=== PATIENT | female | born 1955 ===

== ENCOUNTER 2021-01-24 07:06 | Day surgery (SDC) | payer OTHER ==
[2021-01-24] MEDS ORDERED: NAPR500T14 PO (14:27)
[2021-01-24] MEDS ORDERED: MORGIDOX100 MG PO (14:27)
== END 2021-01-24 18:40 | disposition home or self-care (01) ==
LOC: CIR.AMB 07:06
PROVIDERS: ATTEND Obstetrics & Gynecology
DX: N84.0 Polyp of corpus uteri (principal); Z20.822 Contact with and (suspected) exposure to COVID-19